=== PATIENT | female | born 1990 | race Caucasian/White ===

== ENCOUNTER 2017-02-23 22:59 | Emergency (ER) | payer OTHER ==
--- NOTE | ~2017-02-23 | EKG ---
PATIENT: ANDRÉS HALEY UNIT #: [id number] Ventricular Rate: 97 BPM Atrial Rate: 97 BPM P-R Interval: 156 ms QRS Duration: 78 ms Q-T Interval: 348 ms QTC Calculation(Bezet): 441 ms P [place]: 37 degrees Calculated R [place]: 89 degrees Calculated T [place]: 54 degrees Diagnosis Line: Normal sinus rhythm Diagnosis Line: Normal ECG Diagnosis Line: When compared with ECG of 19-NOV-2016 00:18, Diagnosis Line: No significant change was found Diagnosis Line: Confirmed by GAUTAM CRUMP MD ([id number]) on Diagnosis Line: 02/25/2017 5:41:17 AM INTERPRETING DIRK SMITH
[~2017-02-23 22:59] MED LIST: ACETAMINOPHEN PO; ADDERALL 10 MG10 M1 PO; ADDERALL10 MG PO; ALPRAZOLAM PO; AMOXICILLIN500 M1 PO; BACTRIM DS TABL1 TA1 PO; CIPRO PO; CLEOCIN HCL300 M1; CLEOCIN HCL300 M1 PO; HEROIN; KEFLEX500 MG PO; LEVAQUIN PO; LORTAB 5/500 TA1 TA1 PO; MAGIC MOUTH WASH PO; NO MEDICATIONS; PHENERGAN W/CO120 ML PO; PYRIDIUM PO; PYRIDIUM100 MG PO; REMERON SOLTAB15 M1 PO; SEROQUEL; SEROQUEL50 MG PO; VOLTAREN75 MG; VOLTAREN75 MG PO; XANAX0.5 MG PO; ZOFRAN PO; ZOLOFT100 MG PO
[2017-02-24 00:21] LABS: AMPHETAMINE POS (NEG); BARBITURATES NEG (NEG); BENZODIAZEPINES NEG (NEG); COCAINE NEG (NEG); MARIJUANA NEG (NEG); OPIATES POS (NEG); TRICYCLIC ANTIDEPRESSANTS NEG (NEG); U METHADONE NEG (NEG)
== END 2017-02-24 01:57 | disposition home or self-care (01) ==
LOC: CED 22:59
PROVIDERS: Nurse Practitioner
DX: T40.1X1A Poisoning by heroin, accidental (unintentional), initial encounter (principal); F11.10 Opioid abuse, uncomplicated; F17.210 Nicotine dependence, cigarettes, uncomplicated; F31.9 Bipolar disorder, unspecified; Y92.89 Other specified places as the place of occurrence of the external cause
CPT/HCPCS: 36415; 80307; 82947; 84703; 93005; 96361; 96374; 99284

== ENCOUNTER 2017-04-23 06:53 | Emergency (ER) | payer OTHER | END 2017-04-23 07:27 | disposition home or self-care (01) | LOC: SED 06:53 | DX: L03.114 Cellulitis of left upper limb (principal); Z23 Encounter for immunization; Z91.040 Latex allergy status; Z88.8 Allergy status to other drugs, medicaments and biological substances | CPT/HCPCS: 90471; 90715; 99283 ==

== ENCOUNTER 2017-05-03 23:09 | Emergency (ER) | payer OTHER ==
[2017-05-03] MEDS ORDERED: NO MEDICATIONS (23:20)
== END 2017-05-03 23:50 | disposition home or self-care (01) ==
LOC: SED 23:09
DX: Z48.00 Encounter for change or removal of nonsurgical wound dressing (principal)
CPT/HCPCS: 99282

== ENCOUNTER 2017-07-13 10:40 | Emergency (ER) | payer OTHER | END 2017-07-13 11:07 | disposition home or self-care (01) | LOC: SED 10:40 | DX: L03.114 Cellulitis of left upper limb (principal); F31.9 Bipolar disorder, unspecified; F17.210 Nicotine dependence, cigarettes, uncomplicated; Z91.040 Latex allergy status | CPT/HCPCS: 99282 ==